=== PATIENT | male | born 1950 | race Caucasian/White ===

== ENCOUNTER 2017-08-29 07:24 | Day surgery (SDC) | payer MEDICARE, OTHER ==
[~2017-08-29] VITALS: Ht 182.9 cm; Wt 69.3 kg
[~2017-08-29 07:24] MED LIST: AMLO10TA2 PO; CHOL5000 PO; FERR325T18 PO; FURO40TA6 PO; INSU100I32 SQ-INSULIN; INSU100V14 SQ; INSU100V8 SQ; LEVO125T5 PO; METO-95 PO; OXYC10TA6 PO; PARO40TA3 PO; ROPI2TAB4 PO; SEVE800T7 PO; VIT1TABL32 PO; ZOLP10TA PO
[2017-08-29] MEDS ORDERED: DEXTROSE 50%, 50ML SYRINGE ONE ×2 (07:36→15:26)
[2017-08-29] MEDS ORDERED: SODIUM CHLORIDE 0.9% 1,000 ML IV SCH (07:50)
[2017-08-29] MEDS ORDERED: DEXTROSE 50%, 50ML SYRINGE IVPush PRN (08:00)
[2017-08-29 08:03] LABS: BASOPHILS # (AUTO) 0.03 x10^3/uL (0-0.1); BASOPHILS % (AUTO) 0 % (0-1); EOSINOPHILS # (AUTO) 0.05 x10^3/uL (0-0.4); EOSINOPHILS % (AUTO) 1 % (1-7); LYMPHOCYTES # (AUTO) 0.88 x10^3/uL (1-3.4); LYMPHOCYTES % (AUTO) 9 % (22-44); MD NO; MEAN CORPUSCULAR HGB CONC 34.7 g/dL (33.2-36.2); MEAN PLATELET VOLUME 8.5 fL (7.4-10.4); MONOCYTES # (AUTO) 0.57 x10^3/uL (0.2-0.8); MONOCYTES % (AUTO) 6 % (2-9); NEUTROPHILS # (AUTO) 8.63 x10^3/uL (1.8-6.8); NEUTROPHILS % (AUTO) 85 % (42-75); PLATELET COUNT 145 x10^3/uL (130-400); RED BLOOD COUNT 3.23 x10^6/uL (4.38-5.82); RED CELL DISTRIBUTION WIDTH 13.4 % (9.4-14.8)
[2017-08-29 08:09] VITALS: BP 111/66
[2017-08-29] MEDS ORDERED: MIDAZOLAM 1 MG/ML, 2ML ONE ×3 (08:10→10:08)
[2017-08-29] MEDS ORDERED: FENTANYL PF 100 MCG/2ML ONE ×3 (08:10→10:08)
[2017-08-29 08:11] LABS: INTERNATIONAL NORMALIZED RATIO 0.96 (0.93-1.1); PROTHROMBIN TIME 9.9 Seconds (9.6-11.5)
[2017-08-29 08:15] LABS: ALANINE AMINOTRANSFERASE 21 U/L (12-78); ANION GAP 12 mmol/L (5-15); CHLORIDE 100 mmol/L (98-107)
[2017-08-29] MEDS ORDERED: METO-93 PO (08:16)
[2017-08-29 08:18] LABS: ALKALINE PHOSPHATASE 95 U/L (45-117); BILIRUBIN,TOTAL 0.4 mg/dL (0.2-1.0)
[2017-08-29] MEDS ORDERED: PARO20TA4 PO (08:20)
[2017-08-29] MEDS ORDERED: REPA0.5T4 PO (08:21)
[2017-08-29] MEDS ORDERED: B,C/1TAB PO (08:26)
[2017-08-29] MEDS ORDERED: DOXA2TAB9 PO (08:26)
[2017-08-29] MEDS ORDERED: OMEP-110 PO (08:26)
[2017-08-29] MEDS ORDERED: METO10TA2 PO (08:26)
[2017-08-29] MEDS ORDERED: BUPR100T11 PO (08:26)
[2017-08-29] MEDS ORDERED: LACT10SO28 PO (08:26)
[2017-08-29] MEDS ORDERED: EPHEDRINE 50 MG/ML, 1ML ONE ×2 (10:35→15:26)
[2017-08-29] MEDS ORDERED: FENTANYL PF 100 MCG/2ML IV PRN (11:00)
[2017-08-29] MEDS ORDERED: ONDANSETRON ODT 8 MG PO PRN (11:00)
[2017-08-29] MEDS ORDERED: OXYcodone 5 MG/5 ML ORAL.SOL UDC PO PRN (11:00)
[2017-08-29] MEDS ORDERED: ACETAMINOPHEN 325 MG TABLET PO PRN (11:00)
[2017-08-29] MEDS ORDERED: MEPERIDINE/PF 25MG/0.5ML IVPush PRN (11:00)
[2017-08-29] MEDS ORDERED: HYDROmorphone 1 MG/ML, 1ML IV PRN (11:00)
[2017-08-29] MEDS ORDERED: PROPOFOL 10 MG/ML, 20ML ONE (15:26)
== END 2017-08-29 13:10 ==
LOC: OUT 07:24
PROVIDERS: ATTEND Internal Medicine Gastroenterology
DX: K29.50 Unspecified chronic gastritis without bleeding (principal); K44.9 Diaphragmatic hernia without obstruction or gangrene; F17.210 Nicotine dependence, cigarettes, uncomplicated; Z88.6 Allergy status to analgesic agent; Z88.1 Allergy status to other antibiotic agents; Z88.0 Allergy status to penicillin
CPT/HCPCS: 43239; 43248; 80053; 82962; 85025; 85610; 88305; 93005; J2250; J2704; J3010; J7030

== ENCOUNTER → 2017-10-30 | Outpatient (CLI) | payer MEDICARE, OTHER ==
[~2017-10-30] MED LIST changes: -AMLO10TA2 PO; +AMLO10TA6 PO; +B,C/1TAB PO; +BUPR100T11 PO; +BUPR8TAB PO; +DOXA2TAB9 PO; +ERYT250C8 PO; +FLUO20CA19 PO; +LACT10SO28 PO; +METO-93 PO; +METO10TA2 PO; +OMEP-110 PO; +ONDA4TAB13 SL; +PARO20TA4 PO; +REPA0.5T4 PO
== END | disposition home or self-care (01) ==
LOC: PETCFH 08:50
PROVIDERS: ATTEND Internal Medicine Gastroenterology
DX: Z02.9 Encounter for administrative examinations, unspecified (principal)

== ENCOUNTER 2017-11-04 12:50 | Emergency (ER) | payer MEDICARE, OTHER ==
[~2017-11-04 12:50] MED LIST changes: +AMLO10TA2 PO; -AMLO10TA6 PO; -BUPR8TAB PO; -ERYT250C8 PO; -FLUO20CA19 PO; -ONDA4TAB13 SL
[2017-11-04] MEDS ORDERED: PLEASE ENTER HEIGHT AND WEIGHT MC SCH (14:00)
[2017-11-04] MEDS ORDERED: DEXTROSE 10% 1,000 ML IV SCH (14:00)
[2017-11-04] MEDS ORDERED: DEXTROSE 10% 1,000 ML IV ONE (14:21)
[2017-11-04] MEDS ORDERED: ONDA4TAB13 SL (15:40)
[2017-11-04] MEDS ORDERED: ERYT250C8 PO (15:40)
[2017-11-04] MEDS ORDERED: BUPR8TAB PO (15:40)
[2017-11-04] MEDS ORDERED: FLUO20CA19 PO (15:40)
[2017-11-04 17:04] VITALS: BP 153/68
== END 2017-11-04 17:24 | disposition home or self-care (01) ==
LOC: ED 17:18
DX: E10.649 Type 1 diabetes mellitus with hypoglycemia without coma (principal); I10 Essential (primary) hypertension; Z79.4 Long term (current) use of insulin
CPT/HCPCS: 82962; 93005; 99283